=== PATIENT | male | born 1950 | race Caucasian/White ===

== ENCOUNTER 2021-07-26 14:52 | Emergency (ER) | payer MEDICARE ==
[~2021-07-26] VITALS: Ht 182.9 cm; Wt 78.2 kg
--- NOTE | 2021-07-26 15:03 | PHYS DOC ---
Adult General Chief Complaint Chief Complaint: UPPER EXTREMITY PAIN HPI HPI Patient is a 71-year-old male presenting via POV for left wrist pain. Reports suffering a mechanical fall outside on gravel road, this was unwitnessed and states he lost his footing falling forward on outstretched left hand. States it all happened so fast and he cannot fully recall how he fell but reports minor skin abrasion to right palm, did not hit his head, no loss of consciousness and not on any anticoagulants. Reported he had focal pain and concern for palpable and visual abnormality to distal aspect of left wrist prompting him to come in via POV. Admits pain with palpation and range of movement in all planes of motion of the left hand otherwise no changes in sensory or neuro function Review of Systems Review of Systems Fourteen body systems of review of systems have been reviewed. See HPI for pertinent positives and negative responses, other stephens all other systems are negative, non-pertinent or non-contributory Physical Exam Physical Exam Constitutional: Well developed, well nourished, no acute distress, non-toxic appearance. HENT: Normocephalic, atraumatic, bilateral external ears normal, oropharynx moist, no oral exudates, nose normal. Eyes: PERRLA, EOMI, conjunctiva normal, no discharge. Neck: Normal range of motion, no tenderness, supple, no stridor. Cardiovascular: Heart rate regular, sinus rhythm, no murmurs rubs or gallops Lungs & Thorax: Bilateral breath sounds clear to auscultation Abdomen: Bowel sounds normal, soft, no tenderness, no masses, no pulsatile masses. Nonsurgical abdomen, no peritoneal signs Skin: Warm, dry, no erythema, no rash. Back: No tenderness, no CVA tenderness. Extremities: Tenderness present to distal aspect of left ulna and radial head with palpable abnormality and soft tissue swelling on dorsal portion, no cyanosis, no clubbing, range of motion globally of left wrist diminished due to pain, cap refill less than 3 seconds in all distal digits, 2+ radial pulses bilaterally. Patient otherwise has unremarkable examinations to left shoulder, humerus, elbow, no scaphoid tenderness, left hand and fingers. Neurologic: Alert and oriented X 3, medial radial and ulnar nerves of left upper extremity intact, normal motor & sensory function, no focal deficits noted. Psychologic: Affect normal, judgement normal, mood normal. Current Patient Data Vital Signs Vital Signs Date Time Temp Pulse Resp B/P (MAP) Pulse Ox O2 Delivery O2 Flow Rate FiO2 07/26/21 14:55 98.0 101 20 103/59 (74) 92 Room Air Vital Signs Date Time Temp Pulse Resp B/P (MAP) Pulse Ox O2 Delivery O2 Flow Rate FiO2 07/26/21 14:55 98.0 101 20 103/59 (74) 92 Room Air EKG EKG [] Radiology/Procedures Radiology/Procedures Three-view left wrist and two-view left forearm dated 07/26/2021. Clinical data indication: Pain after fall. FINDINGS: 3 views left wrist show comminuted intra-articular fracture of the distal radius with mild dorsal angulation and mild dorsal displacement the fracture site. There is also a comminuted fracture of the distal ulna. The carpal bones are intact. There is diffuse soft tissue swelling. IMPRESSION: Distal radius and ulnar fractures as described. Electronically signed by: Rashad Gonzalez MD (07/26/2021 3:37 PM) [facility] /////////// Of the left elbow no comparison. INDICATION: Fall and now with pain. FINDINGS: No fracture subluxation dislocation. No joint effusion. Minimal degenerative change. Electronically signed by: Daniel Kaminski MD (07/26/2021 4:09 PM) [facility] Heart Score C/O Chest Pain: No Risk Factors: Risk Factors: DM, Current or recent (<one month) smoker, HTN, HLP, family history of CAD, obesity. Risk Scores: Risk Factors: DM, Current or recent (<one month) smoker, HTN, HLP, family history of CAD, obesity. Course & Med Decision Making Course & Med Decision Making ABCs unremarkable HPI physical exam and radiographs of left upper extremity concerning for mildly displaced distal radial and ulnar fractures that are closed with otherwise intact motor or sensory and neuro function Given location of fractures, orthopedic attending at [facility] contacted and case reviewed, joint decision to administer pain medication, splint with single sugar tong, and provide close outpatient follow-up with exp ectation for CT imaging and likely surgical intervention Patient and daughter updated on ER findings and proposed plan of care for which they were amenable. Patient tolerated [place] in ER setting, single sugar tong splint applied and reassessed by myself remaining intact to all motor or sensory neuro functions Strict return precautions discussed at length with good understanding by patient and daughter, all questions and concerns addressed prior to ER departure Charlene Disclaimer Charlene Disclaimer This electronic medical record was generated, in whole or in part, using a voice recognition dictation system. Departure Departure: Impression: Primary Impression: Distal radius fracture, left Additional Impression: Distal end of ulna fracture, closed Disposition: HOME / SELF CARE / HOMELESS Condition: STABLE Referrals: DEE DEE HICKS Jr. DO Patient Instructions: Radius Fracture with [facility], Ulnar Fracture Additional Instructions: You were seen for a fracture or broken bone of both the distal aspect of your left radial and ulnar bones. We spoke with the orthopedic doctors who need to see you in the orthopedic clinic. Their information is attached to your discharge packet. If you were provided a splint use this as directed. You should not use the affected body part until you follow up with orthopedics. Keep the area clean, dry, and avoid getting it wet. You should use ice, Tylenol, provided narcotic pain medication, and elevation to help with swelling and pain. Return to the ED if you develop worsening pain, numbness, tingling, weakness, fever, redness, or any other new or concerning symptoms. Scripts Hydrocodone Bit/Acetaminophen (HYDROCODONE-APAP 7.5-325 ) 1 Each Tablet 1 TAB PO PRN Q6HRS PRN for PAIN, #20 TAB 0 Refills Prov: ELSA CORDOBA DO 07/26/21 Problem Qualifiers ELSA CORDOBA DO Jul 26, 2021 15:03
--- NOTE | 2021-07-26 15:39 | RAD ---
Three-view left wrist and two-view left forearm dated 07/26/2021. Clinical data indication: Pain after fall. FINDINGS: 3 views left wrist show comminuted intra-articular fracture of the distal radius with mild dorsal ang ulation and mild dorsal displacement the fracture site. There is also a comminuted fracture of the di stal ulna. The carpal bones are intact. There is diffuse soft tissue swelling. IMPRESSION: Distal radius and ulnar fractures as described. Electronically signed by: Rashad Gonzalez MD (07/26/2021 3:37 PM) SUE
--- NOTE | 2021-07-26 16:12 | RAD ---
Of the left elbow no comparison. INDICATION: Fall and now with pain. FINDINGS: No fracture subluxation dislocation. No joint effusion. Minimal degenerative change. Electronically signed by: Daniel Kaminski MD (07/26/2021 4:09 PM) [facility]
[2021-07-26] MEDS ORDERED: HYDR-2765 PO (16:24)
[2021-07-26] MEDS ORDERED: HYDROcodone/APAP 7.5/325MG 1 TAB TABLET PO ONE (16:30)
[2021-07-26 17:15] VITALS: BP 110/61
== END 2021-07-26 17:29 | disposition home or self-care (01) ==
LOC: ER 14:52
DX: S52.502A Unspecified fracture of the lower end of left radius, initial encounter for closed fracture (principal); S52.602A Unspecified fracture of lower end of left ulna, initial encounter for closed fracture; W18.39XA Other fall on same level, initial encounter; Y93.89 Activity, other specified; Y92.89 Other specified places as the place of occurrence of the external cause; Y99.8 Other external cause status
CPT/HCPCS: 29125; 73070; 73090; 73110; 99284